=== PATIENT | female | born 1995 | race Caucasian/White ===

== ENCOUNTER 2016-10-14 20:57 | Emergency (ER) | payer OTHER ==
[~2016-10-14] VITALS: Ht 172.7 cm; Wt 81.3 kg
[~2016-10-14 20:57] MED LIST: CRANPOW PO; ETONMIS VAGRING
[2016-10-14 21:02] VITALS: Ht 172.7 cm; Wt 81.3 kg
[2016-10-14 21:34] LABS: BASO % 0.3 %; BASO ABS # 0.03 K/uL (0-0.2); COMPLETE YES; EOS % 2.1 %; HEMATOCRIT 37.6 % (37-47); IG% 0.5 %; LYMPH % 35.3 %; LYMPH ABS # 3.21 K/uL (1.2-3.4); MEAN CELL VOLUME 94.7 fL (80-100); MEAN CORPUSCULAR HEMOGLOBIN 31.2 pg (25-34); MEAN PLATELET VOLUME 9.2 fL (7.4-10.4); MONO % 8.7 %; NEUT % 53.1 %; PLATELET COUNT 213 K/uL (130-400); RED BLOOD COUNT 3.97 M/uL (4.2-5.4)
[2016-10-14] MEDS ORDERED: ONDANSETRON INJ 2 MG/ML 2 ML VIAL IV STA (21:46)
[2016-10-14 21:52] LABS: BUN/CREATININE RATIO 18.1 (10-20); CREATININE 0.72 mg/dl (0.60-1.20); POTASSIUM 3.2 mmol/L (3.5-5.1)
[2016-10-14 21:55] LABS: ALB/GLOB RATIO 0.8 (0.9-2)
[2016-10-14 21:57] LABS: URINE APPEARANCE CLEAR (CLEAR); URINE BILIRUBIN NEG (NEG); URINE COLOR YELLOW; URINE NITRITE NEG (NEG); URINE SPECIFIC GRAVITY 1.028 (1.000-1.030); UROBILINOGEN NEG (NEG); ZZUR CULT IF INDIC CLEAN CATCH NO
[2016-10-14] MEDS ORDERED: SODIUM CHLORIDE 0.9% 1000ML 1,000 ML IV ONE ×2 (22:00)
[2016-10-14 22:06] LABS: CALCIUM 8.6 mg/dl (8.5-10.1)
[2016-10-14 22:06] LABS: MANUAL MICROSCOPIC REQUIRED? NO; REVIEW REQ? NO
[2016-10-14 22:21] LABS: PREG INTERNAL NEGATIVE QC NEG CLEAR BACKGROUND; PREG INTERNAL POSITIVE QC POS CONTROL LINE
[2016-10-14] MEDS ORDERED: ESCI10TA17 PO (23:01)
[2016-10-14] MEDS ORDERED: LISD40CA PO (23:01)
[2016-10-14] MEDS ORDERED: BCPILLS PO (23:01)
--- NOTE | 2016-10-14 23:06 | DIAGNOSTIC IMAGING REPORT ---
CHEST AND ABDOMEN 2 VIEWS HISTORY: Nausea. Vomiting. COMPARISON: FINDINGS: The lungs are clear. The cardiomediastinal silhouette is within normal limits. There is no pneumoperitoneum or pneumatosis. There is a relative paucity of small bowel gas which limits evaluation for a small bowel obstruction. However, there are no dilated loops of small bowel identified. No pathologic calcifications. IMPRESSION: No acute cardiopulmonary process. No evidence for bowel obstruction. Electronically signed by: Fredrick Alvares M.D. 10/14/2016 11:05 PM Dictated Date/Time: 10/14/2016 11:03 PM
[2016-10-14] MEDS ORDERED: ONDA4TAB10 SL (23:26)
[2016-10-14] MEDS ORDERED: ONDANSETRON HOME PACK 4MG OD TAB PO ONE (23:30)
[2016-10-15 00:16] VITALS: BP 121/77; PULSE 101; TEMP 36.6; O2SAT 99
--- NOTE | 2016-10-15 01:05 | EMERGENCY ROOM VISIT NOTE ---
History First contact with patient: 21:39 Chief Complaint: VOMITING Stated Complaint: NONSTOP VOMITING,DIZZY,EXTREME HEADACHE Nursing Triage Summary: Pt reports n/v/d on and off since Monday. Worsening today, vomiting nonstop the last few hours. abd pain. History of Present Illness The patient is a 21 year old female who presents to the Emergency Room with complaints of nausea and vomiting for the past one day. The patient has had vague illness symptoms for the past 4 or 5 days. Her vomiting has been regular for the past several hours, prompting her presentation. She does have epigastric abdominal discomfort after vomiting. She has not had fever or chills. No recent travel history or antibiotic use. She reports an old history of small bowel obstruction when she was a young child that required surgical intervention. The patient went to an urgent care clinic today, but began vomiting in her car after going to the urgent care clinic and decided to come here. She denies chance of and considers herself otherwise usually healthy. Review of Systems More than 10 systems were reviewed and otherwise negative with the exception of history of present illness. Past Medical/Surgical History No pertinent chronic medical disease Family History No pertinent family history Social History Smoking Status: Former Smoker Current/Historical Medications Scheduled Control Pills ( Control Pills), 1 TAB PO HS Escitalopram (Lexapro), 10 MG PO HS Lisdexamfetamine Dimesylate (Vyvanse), 40 MG PO QAM Ondasetron Odt (Zofran Odt), 4 MG SL Q6H Allergies Coded Allergies: Sulfa Drugs (Verified Allergy, Mild, vomiting, 10/14/16) Valacyclovir (Verified Allergy, Mild, vomiting, 10/14/16) Physical Exam Vital Signs Date Time Temp Pulse Resp B/P Pulse Ox O2 Delivery O2 Flow Rate FiO2 10/15/16 00:16 101 18 121/77 99 Room Air 10/15/16 00:16 36.6 101 18 121/77 99 10/14/16 22:06 101 18 128/78 99 Room Air 10/14/16 21:02 36.6 114 18 137/85 99 Room Air Pain Rating (0-10): 3.0 Physical Exam VITALS: Vitals are noted on the nurse's note and reviewed by myself. Vital signs stable. GENERAL: Well-developed, well-nourished, white female, who is dry heaving upon my presentation to the room EARS: External ear normal. External auditory canals clear, tympanic membranes pearly schulte without erythema or effusion bilaterally. EYES: Pupils equal round and reactive to light and accommodation. Conjunctivae without injection, sclerae without icterus. Extraocular movements intact. NOSE: Patent, turbinates without inflammation or discharge. MOUTH: Mucous membranes moist. Tonsils are not enlarged. Pharynx without erythema, blood, or exudate. Uvula midline. Airway patent. NECK: Supple without nuchal rigidity. No lymphadenopathy. No thyromegaly. Cervical spine is nontender. HEART: Regular rate and rhythm without murmurs gallops or rubs. LUNGS: Clear to auscultation bilaterally without wheezes, rales or rhonchi. No retractions or accessory muscle use. ABDOMEN: Positive normal bowel sounds x 4. Soft, nontender, without masses or organomegaly. No guarding or rebound tenderness. MUSCULOSKELETAL: No muscle atrophy, erythema, or edema noted. Full range of motion without joint tenderness in all extremities. Medical Decision & Procedures ER Provider Diagnostic Interpretation: CHEST AND ABDOMEN 2 VIEWS HISTORY: Nausea. Vomiting. COMPARISON: FINDINGS: The lungs are clear. The cardiomediastinal silhouette is within normal limits. There is no pneumoperitoneum or pneumatosis. There is a relative paucity of small bowel gas which limits evaluation for a small bowel obstruction. However, there are no dilated loops of small bowel identified. No pathologic calcifications. IMPRESSION: No acute cardiopulmonary process. No evidence for bowel obstruction. Laboratory Results 10/14/16 21:20 Red Blood Count 3.97, Mean Corpuscular Volume 94.7, Mean Corpuscular Hemoglobin 31.2, Mean Corpuscular Hemoglobin Concent 33.0, Mean Platelet Volume 9.2, Neutrophils (%) (Auto) 53.1, Lymphocytes (%) (Auto) 35.3, Monocytes (%) (Auto) 8.7, Eosinophils (%) (Auto) 2.1, Basophils (%) (Auto) 0.3, Neutrophils # (Auto) 4.83, Lymphocytes # (Auto) 3.21, Monocytes # (Auto) 0.79, Eosinophils # (Auto) 0.19, Basophils # (Auto) 0.03 10/14/16 21:20 Test 10/14/16 21:20 10/14/16 21:25 White Blood Count 9.10 K/uL (4.8-10.8) Red Blood Count 3.97 M/uL (4.2-5.4) Hemoglobin 12.4 g/dL (12.0-16.0) Hematocrit 37.6 % (37-47) Mean Corpuscular Volume 94.7 fL (80-100) Mean Corpuscular Hemoglobin 31.2 pg (25-34) Mean Corpuscular Hemoglobin Concent 33.0 g/dl (32-36) Platelet Count 213 K/uL (130-400) Mean Platelet Volume 9.2 fL (7.4-10.4) Neutrophils (%) (Auto) 53.1 % Lymphocytes (%) (Auto) 35.3 % Monocytes (%) (Auto) 8.7 % Eosinophils (%) (Auto) 2.1 % Basophils (%) (Auto) 0.3 % Neutrophils # (Auto) 4.83 K/uL (1.4-6.5) Lymphocytes # (Auto) 3.21 K/uL (1.2-3.4) Monocytes # (Auto) 0.79 K/uL (0.11-0.59) Eosinophils # (Auto) 0.19 K/uL (0-0.5) Basophils # (Auto) 0.03 K/uL (0-0.2) RDW Standard Deviation 42.4 fL (36.4-46.3) RDW Coefficient of Variation 12.2 % (11.5-14.5) Immature Granulocyte % (Auto) 0.5 % Immature Granulocyte # (Auto) 0.05 K/uL (0.00-0.02) Anion Gap 9.0 mmol/L (3-11) Est Creatinine Clear Calc Drug Dose 137.1 ml/min Estimated GFR () 137.8 Estimated GFR (Non- 118.9 BUN/Creatinine Ratio 18.1 (10-20) Calcium Level 8.6 mg/dl (8.5-10.1) Total Bilirubin 0.3 mg/dl (0.2-1) Aspartate Amino Transf (AST/SGOT) 17 U/L (15-37) Alanine Aminotransferase (ALT/SGPT) 17 U/L (12-78) Alkaline Phosphatase 59 U/L (45-117) Total Protein 7.2 gm/dl (6.4-8.2) Albumin 3.3 gm/dl (3.4-5.0) Globulin 3.9 gm/dl (2.5-4.0) Albumin/Globulin Ratio 0.8 (0.9-2) Lipase 116 U/L (73-393) Urine Color YELLOW Urine Appearance CLEAR (CLEAR) Urine pH 7.0 (4.5-7.5) Urine Specific [place] 1.028 (1.000-1.030) Urine Protein NEG (NEG) Urine Glucose (UA) NEG (NEG) Urine Ketones TRACE (NEG) Urine Occult Blood NEG (NEG) Urine Nitrite NEG (NEG) Urine Bilirubin NEG (NEG) Urine Urobilinogen NEG (NEG) Urine Leukocyte Esterase NEG (NEG) Urine Test NEG (NEG) Medications Administered Medications (Trade) Dose Ordered Sig/Harish Route Start Time Stop Time Status Last Admin Dose Admin Sodium Chloride 1,000 ml @ 999 mls/hr Q1H1M ONCE IV 10/14/16 22:00 10/14/16 23:00 DC 10/14/16 22:02 999 MLS/HR Sodium Chloride (Nss 1000ml) 1,000 ml @ 999 mls/hr Q1H1M ONCE IV 10/14/16 22:00 10/14/16 23:00 DC 10/14/16 22:02 999 MLS/HR Ondansetron HCl (Zofran Inj) 4 mg NOW STAT IV 10/14/16 21:46 10/14/16 21:48 DC 10/14/16 22:03 4 MG Ondansetron HCl (ZOFRAN ODT 4MG Home Pack) 1 homepack UD ONCE PO 10/14/16 23:30 10/14/16 23:31 DC 10/15/16 00:02 1 HOMEPACK ED Course Physical exam and history were performed. Nursing notes and EMR were reviewed. Patient appears to have nausea and vomiting for the past few hours. She has evidently been dealing ill for the past few days. On examination the patient is dry heaving upon my presentation to the room. IV access was established and labs are obtained. The patient was hydrated with 2 L normal saline and given 4 mg IV Zofran. Plain films were performed. The patient's blood work is as above and was reviewed. She does not have a significantly elevated white blood cell count, grossly deeply for lipidemia, or significant electrolyte imbalance. Lipase and transaminases are nondiagnostic. Urine is without evidence of infection. She is not . Plain films do not show significant findings such as bowel obstruction or free air. On reevaluation the patient felt improved and did not have persistent vomiting. I suspect that her symptoms may be food borne or viral in nature. I had a lengthy discussion with the patient and family regarding the importance of monitoring for worsening symptoms. The patient should follow with her primary care physician in the next 2-3 days for recheck. She will be given a short course of Zofran to help with her symptoms. If things persist she may need CT scan or possible GI follow-up. The patient and family were otherwise invited back to the ER with any new, worsening, or concerning symptoms and were pleased with plan of care. The chart was completed utilizing [employer] Speech Voice Recognition Software. Grammatical errors, random word insertions, pronoun errors, and incomplete sentences are an occasional consequence of this system due to software limitations, ambient noise, and hardware issues. Any formal questions or concerns about the content, text, or information contained within the body of this dictation should be directly addressed to the provider for clarification. . Medical Decision Differential diagnosis: Etiologies such as gastroenteritis, food borne illness, infections, appendicitis , diverticulitis, inflammatory bowel disease, obstruction, GI bleed, biliary pathology, as well as others were entertained. Impression Primary Impression: Nausea and vomiting Departure Information Dispostion Home / Self-Care Condition GOOD Prescriptions Ondasetron Odt (ZOFRAN ODT) 4 Mg Tab 4 MG SL Q6H for Nausea, #12 TAB Prov: Huy Ramos PA-C 10/14/16 Forms HOME CARE DOCUMENTATION FORM, IMPORTANT VISIT INFORMATION Patient Instructions My [facility] Additional Instructions You were seen and evaluated today on an emergency basis only. This is not a substitute for, or an effort to provide, complete comprehensive medical care. It is not possible to recognize and treat all injuries or illnesses in a single emergency department visit. For this reason it is recommended that you followup with your primary care physician on Monday or Monday for ongoing care and evaluation. Drink plenty of fluids and remain well hydrated. Zofran 1 tablet every 6 hrs as needed for nausea. You are welcome to return to the emergency department anytime with new, worsening, or concerning symptoms.
== END 2016-10-15 00:30 | disposition home or self-care (01) ==
LOC: C.EDB 20:58 → C.EDC 10-15 00:30
DX: R11.2 Nausea with vomiting, unspecified (principal); Z87.891 Personal history of nicotine dependence; Z79.899 Other long term (current) drug therapy; Z88.2 Allergy status to sulfonamides; Z88.8 Allergy status to other drugs, medicaments and biological substances